=== PATIENT | male | born 1980 | race Caucasian/White ===

== ENCOUNTER → 2017-03-11 | Outpatient (CLI) | payer BC ==
--- NOTE | 2017-03-11 12:04 | REP ---
Clinical: Trauma. Pain. Technique: AP, lateral, bilateral oblique views of the right ankle. Findings: Lateral soft tissue swelling is appreciated. Oblique view demonstrates small corticated fragments inferior to the fibular tip which may reflect sequelae of old injury. No acute fracture dislocation appreciated. Joint spaces and ankle mortise appear intact. Impression: 1. Moderate lateral soft tissue swelling consistent with inversion injury. 2. Small corticated bony fragments inferior to the fibular tip suggest sequelae of old injury. 3. No acute fracture dislocation appreciated. Signed by Derik Uribe MD 03/11/2017 11:56 A
--- NOTE | 2017-03-11 12:05 | REP ---
Clinical: Trauma. Pain centered at the fifth metatarsal. Technique: AP, lateral, bilateral oblique views right foot. Findings: The osseous structures and joint spaces are intact and normal. There is no evidence for acute fracture or dislocation. Surrounding soft tissues are unremarkable. No subcutaneous emphysema or radiodense foreign body. Impression: No acute fracture or dislocation. Signed by Derik Uribe MD 03/11/2017 11:57 A
== END ==
LOC: M WUC 11:34
PROVIDERS: ATTEND Physician Assistant
DX: M25.571 Pain in right ankle and joints of right foot (principal); R60.0 Localized edema; X58.XXXA Exposure to other specified factors, initial encounter; Y92.9 Unspecified place or not applicable; Y93.9 Activity, unspecified; Y99.8 Other external cause status

== ENCOUNTER → 2020-11-10 | Outpatient (CLI) | payer BC ==
[2020-11-10 13:46] LABS: BASO % 0.9 % (0.0-1.0); EOS # 0.2 10^3/uL (0.0-0.5); EOS % 3.6 % (0.0-3.0); HEMATOCRIT 47.5 % (42.0-52.0); HEMOGLOBIN 16.6 g/dl (13.5-17.5); LYMPH # 1.3 10^3/uL (1.5-5.0); MEAN CORPUSCULAR HGB CONC 34.9 g/dl (32.0-36.5); MEAN CORPUSCULAR VOLUME 91.7 fl (80.0-96.0); MONO # 0.3 10^3/uL (0.0-0.8); MONO % 6.9 % (0.0-5.0); NEUTROPHILS # 2.9 10^3/uL (1.5-8.5); NEUTROPHILS % 61.4 % (36.0-66.0); PLATELET COUNT, AUTOMATED 200 10^3/uL (150-450); RED BLOOD COUNT 5.18 10^6/uL (4.30-6.10); WHITE BLOOD COUNT 4.7 10^3/uL (4.0-10.0)
[2020-11-10 15:12] LABS: ALBUMIN 4.8 GM/DL (3.2-5.2); ALT/SGPT 40 U/L (12-78); BILIRUBIN,TOTAL 1.3 MG/DL (0.2-1.0); BLOOD UREA NITROGEN 18 MG/DL (7-18); CALCIUM LEVEL 9.7 MG/DL (8.5-10.1); CARBON DIOXIDE LEVEL 31 MEQ/L (21-32); CHLORIDE LEVEL 103 MEQ/L (98-107); CHOLESTEROL LEVEL 175 MG/DL (<200); CHOLESTEROL RISK RATIO 4.861 (<5); CREATININE FOR GFR 1.12 MG/DL (0.70-1.30); FREE T4 1.14 NG/DL (0.76-1.46); GLOMERULAR FILTRATION RATE > 60.0 (>60); GLUCOSE, FASTING 94 MG/DL (70-100); HDL CHOLESTEROL 36 MG/DL (>40); LDL CHOLESTEROL 119 MG/DL (<100); NON-HDL-C 139 MG/DL; POTASSIUM SERUM 4.3 MEQ/L (3.5-5.1); SODIUM LEVEL 141 MEQ/L (136-145); TOTAL PROTEIN 7.3 GM/DL (6.4-8.2); TRIGLYCERIDES LEVEL 101 MG/DL (<150)
== END ==
LOC: M PLALAB 11:08
PROVIDERS: ATTEND Physician Assistant
DX: Z00.00 Encounter for general adult medical examination without abnormal findings (principal); Z13.220 Encounter for screening for lipoid disorders; Z13.0 Encounter for screening for diseases of the blood and blood-forming organs and certain disorders involving the immune mechanism; Z13.29 Encounter for screening for other suspected endocrine disorder

== ENCOUNTER → 2021-05-09 | Outpatient (CLI) | payer BC ==
--- NOTE | 2021-05-09 13:58 | PFTRPT ---
Site: [facility], [address] [place] [address], [id number] ID: [id number] Name: MARISOL FRANCO Visit Date: 05/09/2021 Second ID: [id number] Referring Doctor: RROO HDEZ Reviewing Doctor: Zander Jacobsen MD Still Operator: Miller GERMAN RRT Age: 40 : 1980 Sex: Male Race: Height: 69.00 Inches Weight: 183.00 Lbs BSA: 1.99 Order IDs: [id number] Requested Test(s): <RESP-PFT.PFT B/A> Diagnosis: R05 test meet the ATS standards for acceptability and repeatability. Pt was given four puffs of albuterol for post bronchodilator. Review Status: Not Reviewed Pre-Bronch Post-Bronch Pred Actual %Pred Actual %Chng SPIROMETRY FVC (L) 5.10 4.40 86 4.43 FEV1 (L) 4.05 3.56 87 3.72 4 FEV1/FVC (%) 80 81 101 84 3 FEF 25% (L/sec) 7.83 7.26 92 7.88 8 FEF 50% (L/sec) 5.17 4.49 86 5.17 15 FEF 75% (L/sec) 1.84 1.44 78 1.76 22 FEF 25-75% (L/sec) 3.81 3.42 89 4.11 20 FEF Max (L/sec) 9.92 7.81 78 8.38 7 FIVC (L) 4.43 4.48 1 FIF 50% (L/sec) 5.20 5.38 103 5.69 5 FIF Max (L/sec) 5.56 6.26 12 MVV (L/min) 160 120 75 Expiratory Time (sec) 6.60 6.51 -1 Back Extrap Vol (L) 0.15 0.13 -17 Time To FEFmax (sec) 0.121 0.075 -38 LUNG VOLUMES SVC (L) 4.93 4.42 89 IC (L) 3.38 3.03 89 ERV (L) 1.55 1.39 89 TGV (L) 3.35 3.39 101 RV (Pleth) (L) 1.80 2.00 111 TLC (Pleth) (L) 6.73 6.42 95 RV/TLC (Pleth) (%) 27 31 115 DIFFUSION DLCOunc (ml/min/mmHg) 32.28 31.88 98 DLCOcor (ml/min/mmHg) 32.28 30.96 95 DL/VA (ml/min/mmHg/L) 4.80 5.06 105 VA (L) 6.73 6.12 90 BHT (sec) 9.83 IVC (L) 4.39 TLC (SB) (L) 6.27 AIRWAYS RESISTANCE Raw (cmH2O/L/s) 1.45 0.89 61 Gaw (L/s/cmH2O) 1.03 1.16 112 sRaw (cmH2O*s) 4.76 2.80 58 sGaw (1/cmH2O*s) 0.20 0.37 184 BLOOD GASES Hgb (gm/dL) 15.7
== END ==
LOC: M CARPUL 08:22
PROVIDERS: ATTEND Nurse Practitioner Family
DX: R05 Cough (principal)

== ENCOUNTER → 2021-05-25 | Outpatient (CLI) | payer BC ==
[~2021-05-25] MED LIST: METHACHOLINE KIT (J7674) INH ONE
--- NOTE | 2021-05-25 12:49 | PFTRPT ---
Site: [facility], [address] [place], [address] ID: [id number] Name: MARISOL FRANCO Visit Date: 05/25/2021 Second ID: [id number] Referring Doctor: RORO HDEZ Reviewing Doctor: Zander Jacobsen MD Night Time Babysitter: Miller GERMAN RRT Age: 40 : 1980 Sex: Male Race: Height: 69.00 Inches Weight: 180.00 Lbs BSA: 1.98 Order IDs: [id number] Requested Test(s): <RESP-PFT.METH CHAL> Diagnosis: R05 of albuterol for post bronchodilator. Review Status: Not Reviewed Pre-Bronch Post-Bronch Pred Actual %Pred Actual %Chng SPIROMETRY FVC (L) 5.10 4.43 86 4.28 -3 FEV1 (L) 4.05 3.57 88 3.40 -4 FEV1/FVC (%) 80 80 100 80 -1 FEF 25% (L/sec) 7.80 7.29 93 6.85 -6 FEF 50% (L/sec) 5.15 4.55 88 3.78 -17 FEF 75% (L/sec) 1.83 1.42 77 1.08 -23 FEF 25-75% (L/sec) 3.81 3.39 89 2.86 -15 FEF Max (L/sec) 9.91 7.89 79 7.51 -4 FIVC (L) 4.36 4.31 -1 FIF 50% (L/sec) 5.20 5.85 112 6.38 9 FIF Max (L/sec) 5.88 6.38 8 Expiratory Time (sec) 6.72 6.24 -7 Back Extrap Vol (L) 0.15 0.18 15 Time To FEFmax (sec) 0.103 0.110 6
== END ==
LOC: M CARPUL 11:58
PROVIDERS: ATTEND Nurse Practitioner Family
DX: R05 Cough (principal)
CPT/HCPCS: 94070; J7674

== ENCOUNTER → 2022-02-22 | Outpatient (CLI) | payer BC | LOC: M SLEEP HO 11:52 | PROVIDERS: ATTEND Nurse Practitioner Family | DX: R06.83 Snoring (principal) ==

== ENCOUNTER → 2022-10-31 | Outpatient (REF) | payer BC | LOC: M SFHCDERM 14:13 | PROVIDERS: ATTEND Physician Assistant | DX: D49.2 Neoplasm of unspecified behavior of bone, soft tissue, and skin (principal) ==

== ENCOUNTER → 2022-12-19 | Outpatient (CLI) | payer BC ==
[~2022-12-19] MED LIST changes: -METHACHOLINE KIT (J7674) INH ONE; +PROHANCE 279.3MG/ML 15ML VIAL ONE; +PROHANCE 279.3MG/ML 5ML VIAL ONE
== END ==
LOC: M PLAIMG 07:46
PROVIDERS: ATTEND Internal Medicine Gastroenterology
DX: K76.0 Fatty (change of) liver, not elsewhere classified (principal); R93.2 Abnormal findings on diagnostic imaging of liver and biliary tract; R10.11 Right upper quadrant pain; R19.7 Diarrhea, unspecified; R11.0 Nausea
CPT/HCPCS: 74183; A9576

== ENCOUNTER → 2023-10-17 | Outpatient (CLI) | payer BC | LOC: M SLEEP 20:00 | PROVIDERS: ATTEND Nurse Practitioner Family | DX: G47.33 Obstructive sleep apnea (adult) (pediatric) (principal) ==

== ENCOUNTER → 2023-11-13 | Outpatient (CLI) | payer BC | LOC: M SLEEP 20:00 | PROVIDERS: ATTEND Nurse Practitioner Family | DX: G47.33 Obstructive sleep apnea (adult) (pediatric) (principal); G47.61 Periodic limb movement disorder ==